=== PATIENT | female | born 1980 | race Caucasian/White ===

== ENCOUNTER → 2020-07-19 | Outpatient (CLI) | payer OTHER ==
[~2020-07-19] MED LIST: AUGMENTIN 875-1 EACH PO; METOPROLOL TART25 MG PO
== END ==
LOC: EDBD → M.ULTRA 07:20
PROVIDERS: ATTEND Surgery
DX: N63.10 Unspecified lump in the right breast, unspecified quadrant (principal)

== ENCOUNTER 2020-07-26 06:28 | Emergency (ER) | payer OTHER ==
[~2020-07-26] VITALS: Ht 162.6 cm; Wt 77.1 kg
[2020-07-26] MEDS ORDERED: METOPROLOL TART25 MG PO (06:40)
[2020-07-26] MEDS ORDERED: AUGMENTIN 875-1 EACH PO (07:44)
[2020-07-26 07:52] VITALS: BP 157/106
== END 2020-07-26 07:52 | disposition home or self-care (01) ==
LOC: M.ERS 06:28
DX: J32.9 Chronic sinusitis, unspecified (principal); Z20.828 Contact with and (suspected) exposure to other viral communicable diseases; I10 Essential (primary) hypertension; N18.9 Chronic kidney disease, unspecified

== ENCOUNTER → 2021-02-19 | Outpatient (CLI) | payer OTHER | LOC: M.RAD 02-14 08:34 | PROVIDERS: ATTEND Surgery | DX: Z12.31 Encounter for screening mammogram for malignant neoplasm of breast (principal); N63.21 Unspecified lump in the left breast, upper outer quadrant; N63.23 Unspecified lump in the left breast, lower outer quadrant; R92.8 Other abnormal and inconclusive findings on diagnostic imaging of breast ==

== ENCOUNTER → 2021-02-24 | Outpatient (CLI) | payer OTHER ==
--- NOTE | 2021-02-25 18:06 | PATH ---
[address] [address] PATHOLOGY RPT PROCEDURE Name: BROOKELEONEL J [facility] [id number] Admission: 02/24/21 Date of : 82 Discharge: Report #: [id number] Path Case #: [id number] [facility] Accession Number: [id number] . 01 Material submitted: . PART A: breast - LEFT BREAST 500 8CM FN. Modifiers: left, 5:00, 8CM FROM NIPPLE PART B: breast - LEFT BREAST 100 2CM FN. Modifiers: left, 1:00, 2CM FROM NIPPLE . 01 Clinical history: . A: 0.59 X 0.47 X 0.38 CM B: 1.38 x 1.37 x 0.74 CM . . 02 Diagnosis: A. Left breast, 5:00, 8 cm from nipple, image-guided core biopsies: - Ductal papilloma and cystic apocrine metaplasia, negative for atypia. See comment. . B. Left breast, 1:00, 2 cm from nipple: - Fibroadenoma and benign breast tissue, negative for atypia. See comment. (SARI:ange; 02/25/2021) [facility] [place] 02/25/2021 1250 Local . 02 Comment: Specimens A and B reviewed with Dr. Frandy Osman on 02/25/2021, who agrees with the diagnoses. (SARI:ange; 02/25/2021) . 02 Electronically signed: . Karson Torres MD, Pathologist NPI- [id number] . 01 Gross description: . A. The specimen is received in formalin, labeled "Leonel Brooke, left breast 5:00 8 cm from nipple" received as multiple soft flower-yellow tissue cores measuring up to 2.2 cm x 0.2 cm. The specimen is entirely submitted A1-A2. The specimen is removed from the patient at 0954 hours and placed in formalin at 1000 hours on Wednesday, February 24, 2021. The specimen is removed from formalin at 11:30pm. The specimen is in formalin for greater than 6 hours and less than 72 hours. . B. The specimen is received in formalin, labeled "Leonel Brooke, left breast 1:00 2 cm from nipple" received as multiple soft flower-yellow tissue cores measuring up to 1.7 cm x 0.2 cm. [place] [address] PATHOLOGY RPT PROCEDURE Name: LEONEL BROOKE Room: [facility]#: [id number] Admission: 02/24/21 Date of : 82 Discharge: Report #: [id number] Path Case #: [id number] B1-B2. The specimen is removed from the patient at 0948 hours and placed in formalin at 0949 hours on Wednesday, February 24, 2021. The specimen is removed from formalin at 11:30pm. The specimen is in formalin for greater than 6 hours and less than 72 hours. ([facility] [place]; 02/24/2021) ELA/ELA 02/24/2021 1553 Local . 02 Pathologist provided ICD-10: D24.2 . 02 CPT . 908301, [id number] Specimen Comment: A courtesy copy of this report has been sent to [phone], [phone] Specimen Comment: [phone] Specimen Comment: Report sent to / DR SINGER Performed at: 01 [facility] [address], [place] [id number] MD Maninder Davis MD Phone: [phone] Performed at: 02 [facility] [place] [id number] MD Karson Torres MD Phone: [phone]
== END | disposition home or self-care (01) ==
LOC: M.ULTRA 08:08
PROVIDERS: ATTEND Surgery
DX: D24.2 Benign neoplasm of left breast (principal); N60.82 Other benign mammary dysplasias of left breast; R92.1 Mammographic calcification found on diagnostic imaging of breast; N18.9 Chronic kidney disease, unspecified; I12.9 Hypertensive chronic kidney disease with stage 1 through stage 4 chronic kidney disease, or unspecified chronic kidney disease; Z98.890 Other specified postprocedural states; Z79.899 Other long term (current) drug therapy

== ENCOUNTER → 2021-04-03 | Outpatient (CLI) | payer OTHER | LOC: M.ULTRA 10:56 | PROVIDERS: ATTEND Obstetrics & Gynecology | DX: N92.6 Irregular menstruation, unspecified (principal); D25.9 Leiomyoma of uterus, unspecified; Z98.890 Other specified postprocedural states ==